=== PATIENT | male | born 1950 | race Caucasian/White ===

== ENCOUNTER 2020-07-05 07:19 | Day surgery (SDC) | payer MEDICARE, BC ==
--- NOTE | 2020-07-04 12:09 | PCM.PREANE ---
Preanesthetic Assessment - Procedure Proposed Procedure: Screening Colonoscopy - Anesthesia/Transfusion/Family Hx Anesthesia History: Prior Anesthesia Without Reaction Family History of Anesthesia Reaction: No Transfusion History: No Prior Transfusion(s) Intubation History: Unknown - Review of Systems General: No Symptoms Pulmonary: No Symptoms (Covid +: April 2019 Smoker: 20 years/pipe off since 2019 Snores: CHRISTIANA-CPAP) Cardiovascular: No Symptoms ( HTN) Gastrointestinal: No Symptoms Neurological: No Symptoms Other: Reports: None (left hip pain 02/18), Easy Bruising - Physical Assessment NPO Status Date: 07/04/20 NPO Status Time: 04:10 Vital Signs: HR: 57 Sat: 98% Temp: 97.1 Resp: 16 B/P: [id number] Height: 1.83 m Weight: 88 kg ASA Class: 2 Mental Status: Alert & Oriented x3 Airway Class: Mallampati = 2 Dentition: Reports: Normal Dentition, Caries Thyro-Mental Finger Breadths: 3 Mouth Opening Finger Breadths: 3 ROM/Head Extension: Full Lungs: Clear to Auscultation, Normal Respiratory Effort Cardiovascular: Regular Rate, Regular Rhythm, No Murmurs - Lab Values: All labs reviewed and noted and within acceptable ranges to proceed with scheduled procedure. - Imaging/EKG Impressions: EKG: SB rate=49, mild st-t wave changes. - Allergies Allergies/Adverse Reactions: Allergies Allergy/AdvReac Type Severity Reaction Status Date / Time Penicillins Allergy Other Verified 07/04/20 15:56 - Anesthesia Plan Pre-Op Medication Ordered: None - Acknowledgements Anesthesia Type Planned: MAC Pt an Appropriate Candidate for the Planned Anesthesia: Yes Alternatives and Risks of Anesthesia Discussed w Pt/Guardian: Yes Pt/Guardian Understands and Agrees with Anesthesia Plan: Yes PreAnesthesia Questionnaire - HOME MEDS Home Medications: Home Meds Aspirin 162 mg PO DAILY 07/04/20 [History] Cholecalciferol (Vitamin D3) [Vitamin D3] 1,000 unit PO DAILY 07/04/20 [History] Glucosamine Sulfate Dipot Chlr [Glucosamine] 1,000 mg PO DAILY 07/04/20 [History] Losartan [Cozaar] 25 mg PO DAILY 07/04/20 [History] Lutein/Minerals/Vit A,C & E [Ocuvite] 1 tab PO DAILY 07/04/20 [History] Multivitamin 1 tab PO DAILY 07/04/20 [History] Dupont-3/DHA/Epa/Fish Oil [Dupont 3 500 Softgel] 1 cap PO DAILY 07/04/20 [History] Sildenafil Citrate [Viagra] 100 mg PO ASDIRECTED PRN 07/04/20 [History] hydroCHLOROthiazide [Hydrochlorothiazide] 12.5 mg PO DAILY 07/04/20 [History] - CURRENT (IN HOUSE) MEDS Current Meds: Current Medications Lactated Ringer's (Ringers, Lactated) 1,000 mls @ 125 mls/hr IV ASDIRECTED WILLIE Stop: 07/05/20 23:00 Lidocaine/Sodium Bicarbonate (Lidocaine 1%/Sod Bicarbonate In Ns 8.4% 1 Ml Syringe) 0.25 ml IDERM ONETIME PRN PRN Reason: Prior to IV Start Stop: 07/05/20 18:00 Sodium Chloride (Sodium Chloride 0.9% 10 Ml Syringe) 10 ml FLUSH ASDIRECTED PRN PRN Reason: Keep Vein Open Stop: 07/05/20 18:00
[~2020-07-05 07:19] MED LIST: Lactated Ringers 1,000 ML IV SCH; Lidocaine 1% 0 ML ONE; Lidocaine 1% 4 ML ONE; Lidocaine 1%/Sod Bicarbonate in NS 8.4% 1 ML Syringe IDERM PRN; Midazolam 1 MG/ML 2 ML SDV ONE; Propofol 200 MG/20 ML SDV ONE; Sodium Chloride 0.9% 10 ML Syringe FLUSH PRN; fentaNYL 100 MCG/2 ML SDV ONE
[2020-07-05] MEDS ORDERED: ceFAZolin 1 GM Vial ONE (07:33)
[2020-07-05] MEDS ORDERED: Ondansetron 4 MG/2 ML SDV ONE (07:51)
[2020-07-05] MEDS ORDERED: Lactated Ringers 1,000 ML ONE (09:33)
--- NOTE | 2020-07-05 09:58 | PCM.PRNOTE ---
- Free Text/Narrative Note: Date: 07/05/2020 Procedure: screening colonoscopy Indication: last colonoscopy 10 years ago, no polyps identified Endoscopist: Miguel Angel Calle MD Findings: excellent prep. Appendiceal orifice visualized. Terminal ileum intubated. Extensive sigmoid diverticulosis. Hypertrophied anal papilla. No polyps or hemorrhoidal disease. Detailed Report: Patient was taken to the endoscopy suite and placed in left lateral decubitus position. Timeout was performed and monitored anesthesia care was initiated. Visual inspection of the anus revealed a small partially prolapsed hypertrophied anal papilla. Digital rectal exam was unremarkable- the prostate felt normal and no mass was palpable. The colonoscope was inserted and advanced all the way to the cecum. The appendiceal orifice was visualized. Prep was excellent. The terminal ileum was intubated. The scope was slowly withdrawn and mucosal surfaces were carefully inspected. No pathology was noted until the sigmoid colon, where extensive diverticulosis was observed. No polyps were identified. On retroflexion in the rectum, the anal papilla was seen well. There was no appreciable hemorrhoidal disease. Air was suctioned from the distal colon and rectum prior to withdrawal of the scope. The patient tolerated the procedure well.
--- NOTE | 2020-07-05 10:07 | PCM48HPAN ---
Post Anesthesia Note - EVALUATION WITHIN 48HRS OF ANESTHETIC Vital Signs in Normal Range: Yes Patient Participated in Evaluation: Yes Respiratory Function Stable: Yes Airway Patent: Yes Cardiovascular Function Stable: Yes Hydration Status Stable: Yes Pain Control Satisfactory: Yes Nausea and Vomiting Control Satisfactory: Yes Mental Status Recovered: Yes Vital Signs: Last Vital Signs Temp 36.2 C 07/05/20 07:30 Pulse 57 L 07/05/20 07:30 Resp 16 07/05/20 07:30 BP 137/64 07/05/20 07:30 Pulse Ox 98 07/05/20 07:30
[2020-07-05 10:51] VITALS: BP 107/62; PULSE 51
== END 2020-07-05 10:33 | disposition home or self-care (01) ==
LOC: JD.SDS 07:19
PROVIDERS: ATTEND Surgery
DX: Z12.11 Encounter for screening for malignant neoplasm of colon (principal); K57.30 Diverticulosis of large intestine without perforation or abscess without bleeding; K62.89 Other specified diseases of anus and rectum; E78.5 Hyperlipidemia, unspecified; I10 Essential (primary) hypertension; G47.30 Sleep apnea, unspecified; F17.210 Nicotine dependence, cigarettes, uncomplicated; Z88.0 Allergy status to penicillin; Z79.82 Long term (current) use of aspirin; Z79.899 Other long term (current) drug therapy
CPT/HCPCS: G0121; J2704; J3010; J7120; 00812; J0690; J2250; J2405